=== PATIENT | male | born 1960 | race Caucasian/White ===

== ENCOUNTER 2016-12-07 12:41 | Emergency (ER) | payer OTHER ==
[2016-12-07 13:00] LABS: BASOPHIL 0.7 % (0-2); EOSINOPHIL 3.3 % (0-5); HCT 43.7 % (42.0-52.0); HGB 15.2 g/dl (13.2-18.0); LYMPHOCYTE 33.3 % (15-48); MCH 29.3 pg (25.0-31.0); MCHC 34.8 g/dL (32.0-36.0); MCV 84.2 fL (78.0-100.0); MPV 9.2 fL (6.0-9.5); NEUTROPHIL 48.7 % (41-80); PLT 304 K/uL (150-400); RBC 5.19 M/uL (4.70-6.00); RDW 12.7 % (11.5-14.0); WBC 6.1 K/uL (4.0-10.5)
[2016-12-07 13:09] LABS: INR 0.96 (0.9-1.2); PROTHROMBIN TIME 12.4 SECONDS (11.7-14.0); PTT 25.4 SECONDS (23.2-31.4)
[2016-12-07 13:17] LABS: MYOGLOBIN 64 ng/mL (26-65); PRO-BNP 8 pg/mL (0-125); TROPONIN T < 0.010 ng/mL
[2016-12-07 13:18] LABS: ALBUMIN 4.5 g/dL (3.5-5.0); BILIRUBIN - TOTAL 0.5 mg/dL (0.1-1.0); CREATININE 1.1 mg/dL (0.7-1.2); GLOBULIN (CALCULATION) 2.4 g/dL (2.2-4.2); MAGNESIUM 2.23 mg/dL (1.40-2.10); POTASSIUM 3.7 mmol/L (3.5-5.1); TOTAL PROTEIN 6.9 g/dL (6.4-8.3)
[2016-12-07 13:20] LABS: CKMB 6.63 ng/mL (0.97-4.94)
== END 2016-12-07 17:02 | disposition home or self-care (01) ==
LOC: FER 12:41
PROVIDERS: Emergency Medicine
DX: R07.9 Chest pain, unspecified (principal); I10 Essential (primary) hypertension; Z79.899 Other long term (current) drug therapy; Z82.49 Family history of ischemic heart disease and other diseases of the circulatory system
CPT/HCPCS: 36415; 71010; 80053; 82550; 82553; 83735; 83874; 83880; 84484; 85025; 85379; 85610; 85730; 93005